=== PATIENT | male | born 1945 | race African-American/Black ===

== ENCOUNTER 2017-07-16 07:06 | Day surgery (SDC) | payer OTHER ==
[2017-07-15 14:26] VITALS: BMI 29.2
[2017-07-16] MEDS ORDERED: PROPOFOL 20 ML ONE ×5 (08:14)
[2017-07-16] MEDS ORDERED: LIDOCAINE HCL/PF 2% SDV 5ML VIAL ONE (08:15)
[2017-07-16 09:07] VITALS: PULSE 50
[2017-07-16 09:26] VITALS: BP 147/59
[2017-07-16 10:02] VITALS: TEMP 98
--- NOTE | 2017-07-17 15:26 | PATH ---
Surgical Pathology Report Patient Name: CATRINA LOPEZ [facility]. Rec. #: [id number] /Age/Gender: 1945 (Age: 72) / M Account: [id number] Location: U-ENDOSCOPY Taken: 07/16/2017 Received: 07/16/2017 Reported: 07/17/2017 Physicians: Sancho Mulligan M.D. Specimen(s) Received BX SIGMOID Clinical History Ulcerative colitis, history of colon polyp Diverticulosis, sigmoid colitis, grade 2 hemorrhoids, colitis associated diverticulosis Final Diagnosis SIGMOID, COLITIS, BIOPSY: MODERATE CHRONIC COLITIS, MILDLY ACTIVE. Electronically Signed Giselle Mccracken M.D. Gross Description Received in formalin, labeled "biopsy sigmoid colitis" is a wilkins, irregular portion of soft tissue measuring 0.4 cm. in greatest dimension. The specimen is submitted in toto in one cassette. /07/16/2017 saudi/07/16/2017
== END 2017-07-16 10:02 | disposition home or self-care (01) ==
LOC: JASU-ENDO 07:06
PROVIDERS: ATTEND Internal Medicine Gastroenterology
PROC: 0DBN8ZX Excision of Sigmoid Colon, Via Natural or Artificial Opening Endoscopic, Diagnostic (ICD-10-PCS; principal; 2017-07-16 08:00)
DX: K51.90 Ulcerative colitis, unspecified, without complications (principal); K57.30 Diverticulosis of large intestine without perforation or abscess without bleeding; K64.8 Other hemorrhoids
CPT/HCPCS: 88305-TC

== ENCOUNTER 2021-04-08 19:15 | Emergency (ER) | payer OTHER ==
[2021-04-08 20:18] VITALS: BP 00/00; PULSE 0; BMI 27.2
== END 2021-04-08 23:56 | disposition expired ==
LOC: JER 19:15
DX: I46.9 Cardiac arrest, cause unspecified (principal)
CPT/HCPCS: 99281-25